=== PATIENT | male | born 1985 | race Caucasian/White ===

== ENCOUNTER 2017-01-04 13:40 | Emergency (ER) | payer OTHER | END 2017-01-04 17:02 | disposition home or self-care (01) | LOC: FER 13:40 | DX: S42.022A Displaced fracture of shaft of left clavicle, initial encounter for closed fracture (principal); M54.2 Cervicalgia; M54.5 Low back pain; G89.29 Other chronic pain; Z79.899 Other long term (current) drug therapy; V86.99XA Unspecified occupant of other special all-terrain or other off-road motor vehicle injured in nontraffic accident, initial encounter | CPT/HCPCS: 72050; 73000; 99284 ==